=== PATIENT | female | born 2005 | race Two or more races ===

== ENCOUNTER 2024-12-08 18:25 | Emergency (ER) | payer MEDICAID, OTHER ==
[~2024-12-08] VITALS: Ht 160 cm; Wt 90.7 kg
[2024-12-08] MEDS: KETOROLAC TROMETHAMINE 30 MG INJ IM ONE (21:00)
[2024-12-08] MEDS: MORPHINE SULFATE 4 MG/1 ML DISP.SYRIN IM ONE (21:00)
[2024-12-08] MEDS: ONDANSETRON ODT 4 MG TAB.RAPDIS SL ONE (21:00)
[2024-12-08 21:18] LABS: BASOPHILS % (AUTO) 0.4 % (0.0-2.0); EOSINOPHILS % (AUTO) 0.7 % (0.0-7.0); HEMATOCRIT 36.5 % (31.2-41.9); HEMOGLOBIN 11.8 g/dL (10.9-14.3); LYMPHOCYTES # (AUTO) 0.5 K/uL (0.8-4.8); LYMPHOCYTES % (AUTO) 10.4 % (20.5-74.5); MEAN CORPUSCULAR HEMOGLOBIN 24.4 uug (24.7-32.8); MEAN CORPUSCULAR HGB CONC 33 g/dL (32.3-35.6); MEAN CORPUSCULAR VOLUME 75.1 fL (75.5-95.3); MONOCYTES # (AUTO) 0.4 K/uL (0.1-1.30); MONOCYTES % (AUTO) 9.3 % (0-11); NEUTROPHILS # (AUTO) 3.7 K/uL (1.8-8.9); NEUTROPHILS % (AUTO) 79.2 % (31.5-64.5); PLATELET COUNT (AUTO) 198 K/uL (179-408); RED BLOOD CELL COUNT(AUTO) 4.85 MIL/uL (3.63-4.92); RED CELL DISTRIBUTION WIDTH 16.3 % (12.3-17.7); WHITE BLOOD COUNT (AUTO) 4.7 K/uL (3.8-11.8)
[2024-12-08 21:24] LABS: DIFFERENTIAL COMMENT 1
[2024-12-08 21:29] LABS: CALCIUM 8.8 mg/dL (8.5-10.1); CREATININE 0.8 mg/dL (0.6-1.3); POTASSIUM 4.3 mmol/L (3.5-5.1)
[2024-12-08 21:34] LABS: ALBUMIN 3.7 g/dL (3.4-5.0); BILIRUBIN,DIRECT 0.1 mg/dL (0.0-0.2); BILIRUBIN,TOTAL 0.3 mg/dL (0.2-1.0); TOTAL PROTEIN, SERUM 8.4 g/dL (6.4-8.2)
[2024-12-08] MEDS ORDERED: ONDANSETRON 4 MG/2 ML VIAL ONE (21:35)
[2024-12-08] MEDS ORDERED: MORPHINE SULFATE 4 MG/1 ML DISP.SYRIN ONE (21:35)
[2024-12-08] MEDS ORDERED: KETOROLAC TROMETHAMINE 30 MG INJ ONE (21:35)
[2024-12-08] MEDS ORDERED: ONDANSETRON ODT 4 MG TAB.RAPDIS ONE (21:44)
[2024-12-08 21:45] LABS: *URINE HCG, QUAL NEGATIVE (NEGATIVE)
[2024-12-08 21:46] LABS: *BILIRUBIN,URIN NEGATIVE (NEGATIVE); *BLOOD, URINE 3+ (NEGATIVE); *CLARITY,URINE CLOUDY (CLEAR); *COLOR,URINE Orange (YELLOW); *KETONES,URINE 3+ (NEGATIVE); *PROTEIN,URINE 2+ (NEGATIVE); LEUKOCYTE ESTERASE ,URINE NEGATIVE (NEGATIVE); NITRITE, URINE NEGATIVE (NEGATIVE); UGLUCOSE NEGATIVE (NEGATIVE)
[2024-12-08] MEDS ORDERED: HYDR-4209 PO (21:55)
[2024-12-08 22:26] LABS: RBC,URINE TNTC /HPF (0-3)
[2024-12-08 22:27] LABS: BACTERIA,URINE FEW /HPF (NONE SEEN); SQUAMOUS EPITHELIAL CELL,UR FEW /HPF (NONE SEEN)
[2024-12-08 23:01] VITALS: BP 139/94; TEMP 98.2; O2SAT 97
== END 2024-12-08 22:15 | disposition home or self-care (01) ==
LOC: ER 18:25
DX: R10.2 Pelvic and perineal pain (principal)
CPT/HCPCS: 99285; 76856; 80076; 80048; 81001; 84703; 85025; 85730; 36415; 96372 ×2; J1885; J2270; A4606; A4663; J2405; Q0162